=== PATIENT | male | born 1990 | race Caucasian/White ===

== ENCOUNTER 2018-08-09 15:54 | Inpatient (IN) ==
[2018-08-09] MEDS ORDERED: Morphine Inj 4 MG/ML Vial IV.PUSH ONE (16:16)
[2018-08-09] MEDS ORDERED: Diphtheria/Tetanus/Pertussis Vaccine Inj 0.5 ML Syringe IM ONE (16:16)
[2018-08-09] MEDS ORDERED: ceFAZolin 2 GM Premix Inj 2 GM/50 ML PIGGYBACK IV.SIG ONE (16:16)
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
[2018-08-09] MEDS ORDERED: Sod Chloride 0.9% Inj 1,000 ML IV.CONT SCH (16:30)
[2018-08-09 17:01] LABS: Baso % (Auto) 0.2 % (0.0-2.0); Eos # (Auto) 0.2 th/mm3 (0.0-0.4); Eos % (Auto) 2.2 % (0.0-4.0); Hematocrit 42.5 % (39.0-51.0); Hemoglobin 14.2 gm/dL (13.0-17.0); Lymph # (Auto) 2.1 th/mm3 (1.0-4.8); Mean Corpuscular HGB Conc 33.3 % (32.0-36.0); Mean Corpuscular Hemoglobin 28.6 pg (27.0-34.0); Mean Corpuscular Volume 86.1 fL (80.0-100.0); Mean Platelet Volume 8.3 fL (7.0-11.0); Mono # (Auto) 0.5 th/mm3 (0.0-0.9); Mono % (Auto) 6.8 % (0.0-8.0); Neut # (Auto) 4.3 th/mm3 (1.8-7.7); Neut % (Auto) 60.8 % (16.0-70.0); Platelet Count 198 th/mm3 (150-450); Red Blood Count 4.94 mil/mm3 (4.50-5.90)
[2018-08-09 17:09] LABS: Activated Partial Thrombo Time 24.5 sec (23.4-31.7); INR 1.1 Ratio; Prothrombin Time 10.8 sec (9.8-11.6)
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
[2018-08-09 17:15] LABS: Albumin 3.8 g/dL (3.4-5.0); Anion Gap 8 meq/L (5-15); Aspartate Aminotransferase 171 U/L (15-37); Blood Urea Nitrogen 22 mg/dL (7-18); Carbon Dioxide 26.5 meq/L (21.0-32.0); Chloride 107 meq/L (98-107); Glomerular Filtration Rate 58 mL/min (>89); Glucose,Random 166 mg/dL (74-106); Potassium 3.7 meq/L (3.5-5.1); Sodium 141 meq/L (136-145)
[2018-08-09 17:16] LABS: Alanine Aminotransferase 141 U/L (12-78)
[2018-08-09 17:18] LABS: Alkaline Phosphatase 122 U/L (45-117); Total Protein 7.6 g/dL (6.4-8.2)
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
[2018-08-09] MEDS ORDERED: Morphine Sulfate Inj 2 MG/ML Vial IV.PUSH PRN (20:27)
[2018-08-09] MEDS ORDERED: Pantoprazole Inj 40 MG Vial IV.PUSH SCH (21:00)
[2018-08-09] MEDS ORDERED: Bacitracin/Polymyxin Oint 15 GM Tube TOPICAL ONE (21:23)
[2018-08-09] MEDS: Docusate Sodium Liq 100 MG/10 ML UDC PO SCH (22:20)
[2018-08-09] MEDS: Sod Chloride 0.9% Inj 1,000 ML IV.CONT SCH (22:21)
[2018-08-10 05:48] LABS: Baso % (Auto) 0.1 % (0.0-2.0); Eos # (Auto) 0.2 th/mm3 (0.0-0.4); Eos % (Auto) 2.2 % (0.0-4.0); Hematocrit 39.9 % (39.0-51.0); Hemoglobin 13.4 gm/dL (13.0-17.0); Lymph # (Auto) 2.1 th/mm3 (1.0-4.8); Mean Corpuscular HGB Conc 33.7 % (32.0-36.0); Mean Corpuscular Hemoglobin 29.7 pg (27.0-34.0); Mean Corpuscular Volume 88.1 fL (80.0-100.0); Mean Platelet Volume 8.3 fL (7.0-11.0); Mono # (Auto) 0.9 th/mm3 (0.0-0.9); Mono % (Auto) 8.9 % (0.0-8.0); Neut # (Auto) 7.1 th/mm3 (1.8-7.7); Neut % (Auto) 68.8 % (16.0-70.0); Platelet Count 175 th/mm3 (150-450); Red Blood Count 4.52 mil/mm3 (4.50-5.90); Red Cell Distribution Width 13.1 % (11.6-17.2); White Blood Count 10.3 th/mm3 (4.0-11.0)
[2018-08-10 06:18] LABS: Alanine Aminotransferase 106 U/L (12-78); Albumin 3.5 g/dL (3.4-5.0); Alkaline Phosphatase 92 U/L (45-117); Anion Gap 4 meq/L (5-15); Aspartate Aminotransferase 126 U/L (15-37); Blood Urea Nitrogen 15 mg/dL (7-18); Calcium 8.1 mg/dL (8.5-10.1); Carbon Dioxide 28.7 meq/L (21.0-32.0); Chloride 111 meq/L (98-107); Glomerular Filtration Rate 70 mL/min (>89); Glucose,Random 87 mg/dL (74-106); Potassium 4.2 meq/L (3.5-5.1); Sodium 144 meq/L (136-145); Total Protein 6.7 g/dL (6.4-8.2)
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
[2018-08-10] MEDS ORDERED: Lidocaine 5% Patch T-DERMAL SCH (09:00)
[2018-08-10] MEDS: Methocarbamol 500 MG Tablet PO SCH ×2 (09:11→15:28)
[2018-08-10] MEDS: Docusate Sodium Liq 100 MG/10 ML UDC PO SCH (09:11)
[2018-08-10 09:20] VITALS: RESP 19
[2018-08-10] MEDS: Sod Chloride 0.9% Inj 1,000 ML IV.CONT SCH (09:25)
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
--- NOTE | 2018-08-10 12:05 | XR ---
EXAM DATE: 08/10/2018 11:55 AM EST AGE/SEX: 28 years / Male INDICATIONS: Evaluate for pneumothorax. CLINICAL DATA: This is the patient's subsequent encounter. Patient reports that signs and symptoms h ave been present for 1 day and indicates a pain score of 0/10. MEDICAL/SURGICAL HISTORY: None. None. COMPARISON: [facility], CT CHEST W CONTRAST, 08/09/2018. . FINDINGS: A single AP view of the chest demonstrates the lungs to be symmetrically aerated without evidence of mass, infiltrate or effusion. The cardiomediastinal contours are unremarkable. Osseous structures a re intact. Left nipple ornamentation. No evidence of pneumothorax. CONCLUSION: The lungs are clear. Electronically signed by: Lucio Hodge MD Board Certified Radiologist 08/10/2018 12:03 PM EST
[2018-08-10 13:27] VITALS: BP 151/86; PULSE 64; TEMP 98.2; O2SAT 98
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
== END 2018-08-10 16:21 | disposition home or self-care (01) | DRG 565 ==
LOC: NEPE 15:54 → NEDA 18:57 → N06 22:00
PROVIDERS: ADMIT Surgery; ATTEND Surgery
CPT/HCPCS: 70450; 71010; 71045; 71260; 72125; 72170; 73030; 73070; 74177; 80053; 80307; 85025; 85610; 85730; 86850; 86900; 86901; 90471; 90715; 90761; 90765; 90775; 94150; 96361; 96365; 96375; 97161; 97166; 99285; C9113; J0690; J2270; J2405; J7030; Q9967